=== PATIENT | female | born 1990 | race Caucasian/White ===

== ENCOUNTER 2020-08-04 20:08 | Emergency (ER) | payer MEDICAID ==
[~2020-08-04] VITALS: Ht 157.5 cm; Wt 72.0 kg
[2020-08-04] MEDS ORDERED: SODIUM CHLORIDE 0.9% 1,000 ML IV ONE (21:30)
[2020-08-04] MEDS ORDERED: ACETAMINOPHEN 325MG TABLET PO ONE (21:30)
[2020-08-04 23:20] LABS: CLARITY URINE CLEAR (CLEAR); COLOR URINE DARK YELLOW (YELLOW); KETONES URINE NEGATIVE (NEGATIVE); LEUKOCYTE ESTERASE URINE 2+ (NEGATIVE); NITRITE URINE POSITIVE (NEGATIVE); OCCULT BLOOD URINE NEGATIVE (NEGATIVE); PROTEIN URINE TRACE (NEGATIVE); SPECIFIC GRAVITY URINE 1.017 (1.005-1.030)
[2020-08-04] MEDS ORDERED: NITROFURANTOIN 100MG M/M CAPSULE PO ONE (23:45)
[2020-08-05] VITALS: BP 110/69
== END 2020-08-05 00:29 | disposition home or self-care (01) ==
LOC: ER 20:08
DX: O23.32 Infections of other parts of urinary tract in pregnancy, second trimester (principal); Z3A.16 16 weeks gestation of pregnancy; Z88.0 Allergy status to penicillin
CPT/HCPCS: 81003; 81025; 87077; 87086; 87186; 93005; 99284; C9803; J7030; U0003

== ENCOUNTER 2020-09-12 19:29 | Observation (INO) | payer MEDICAID ==
[~2020-09-12] VITALS: Ht 160 cm; Wt 74.8 kg
[2020-09-12] MEDS: LACTATED RINGERS 1,000 ML IV SCH (20:53)
[2020-09-12 20:59] LABS: BASOPHILS % 0.1 % (0.0-2.0); EOSINOPHILS % 0.1 % (0.0-5.0); HEMATOCRIT. 32.2 % (36.0-48.0); HEMOGLOBIN. 10.9 g/dL (12.0-16.0); LYMPHOCYTES % 8.5 % (20.0-50.0); MEAN CORPUSCULAR HEMOGLOBIN 28.9 pg (28.0-32.0); MEAN CORPUSCULAR VOLUME 85.3 fL (81.0-99.0); MEAN PLATELET VOLUME 7.3 fl (7.4-10.4); MONOCYTES % 6.9 % (2.0-8.0); NEUTROPHILS % 84.4 % (40.0-76.0); PLATELET 293 x1000/uL (130-400); RED BLOOD CELL COUNT 3.78 mill/uL (4.2-5.4); RED CELL DISTRIBUTION WIDTH 13.4 % (11.6-14.6)
[2020-09-12 21:00] LABS: CLARITY URINE CLOUDY (CLEAR); COLOR URINE YELLOW (YELLOW); KETONES URINE 1+ (NEGATIVE); LEUKOCYTE ESTERASE URINE 3+ (NEGATIVE); NITRITE URINE NEGATIVE (NEGATIVE); OCCULT BLOOD URINE 3+ (NEGATIVE); PROTEIN URINE 1+ (NEGATIVE); SPECIFIC GRAVITY URINE 1.016 (1.005-1.030)
[2020-09-12 21:06] LABS: CHLORIDE 101 mEq/L (98-107)
[2020-09-12] MEDS ORDERED: CEFTRIAXONE 2 G in DEXTROSE 5% WATER 50 ML IV SCH (22:30)
[2020-09-12] MEDS ORDERED: ACETAMINOPHEN 325MG TABLET PO PRN (22:30)
[2020-09-12] MEDS: CLINDAMYCIN 900 MG in DEXTROSE 5% WATER 50 ML IV SCH (23:31)
[2020-09-13] MEDS: CLINDAMYCIN 900 MG in DEXTROSE 5% WATER 50 ML IV SCH ×2 (08:32→15:56)
[2020-09-13] MEDS: LACTATED RINGERS 1,000 ML IV SCH ×3 (12:30→19:48)
[2020-09-13 15:21] LABS: BASOPHILS % 0.2 % (0.0-2.0); EOSINOPHILS % 0.1 % (0.0-5.0); HEMATOCRIT. 28.9 % (36.0-48.0); HEMOGLOBIN. 9.9 g/dL (12.0-16.0); LYMPHOCYTES % 9.7 % (20.0-50.0); MEAN CORPUSCULAR HEMOGLOBIN 29.1 pg (28.0-32.0); MEAN CORPUSCULAR VOLUME 84.9 fL (81.0-99.0); MEAN PLATELET VOLUME 7.3 fl (7.4-10.4); MONOCYTES % 7.4 % (2.0-8.0); NEUTROPHILS % 82.6 % (40.0-76.0); PLATELET 284 x1000/uL (130-400); RED CELL DISTRIBUTION WIDTH 13.6 % (11.6-14.6)
[2020-09-13 15:27] LABS: CHLORIDE 104 mEq/L (98-107)
[2020-09-14] MEDS: CLINDAMYCIN 900 MG in DEXTROSE 5% WATER 50 ML IV SCH ×3 (00:13→15:36)
[2020-09-14] MEDS: LACTATED RINGERS 1,000 ML IV SCH (05:58)
[2020-09-14 07:40] LABS: BASOPHILS % 0.2 % (0.0-2.0); EOSINOPHILS % 0.4 % (0.0-5.0); HEMATOCRIT. 26.8 % (36.0-48.0); HEMOGLOBIN. 9.3 g/dL (12.0-16.0); LYMPHOCYTES % 14.1 % (20.0-50.0); MEAN CORPUSCULAR HEMOGLOBIN 29.5 pg (28.0-32.0); MEAN CORPUSCULAR VOLUME 84.8 fL (81.0-99.0); MEAN PLATELET VOLUME 7.3 fl (7.4-10.4); MONOCYTES % 9.9 % (2.0-8.0); NEUTROPHILS % 75.4 % (40.0-76.0); PLATELET 272 x1000/uL (130-400); RED BLOOD CELL COUNT 3.16 mill/uL (4.2-5.4); RED CELL DISTRIBUTION WIDTH 13.7 % (11.6-14.6)
== END 2020-09-14 16:30 | disposition home or self-care (01) ==
LOC: 8 EST LDRP 19:29
PROVIDERS: ADMIT Obstetrics & Gynecology; ATTEND Obstetrics & Gynecology
DX: O26.892 Other specified pregnancy related conditions, second trimester (principal); O99.891 Other specified diseases and conditions complicating pregnancy; O23.02 Infections of kidney in pregnancy, second trimester; N10 Acute pyelonephritis; M54.5 Low back pain; R10.9 Unspecified abdominal pain; Z3A.22 22 weeks gestation of pregnancy; Z88.0 Allergy status to penicillin
CPT/HCPCS: 36415; 59025; 80048; 81003; 85025; 87077; 87086; 87186; 96361; 96365; 96366; G0378; J3490; J7060; J7120; 96360; 99281

== ENCOUNTER 2020-10-21 22:23 | Observation (INO) | payer MEDICAID ==
[~2020-10-21] VITALS: Ht 152.4 cm; Wt 68.0 kg
[2020-10-21] MEDS ORDERED: PNV1TABL50 PO (22:48)
[2020-10-21] MEDS ORDERED: LACTATED RINGERS 1,000 ML IV SCH (23:15)
[2020-10-21 23:32] LABS: CLARITY URINE CLEAR (CLEAR); COLOR URINE YELLOW (YELLOW); KETONES URINE NEGATIVE (NEGATIVE); LEUKOCYTE ESTERASE URINE 3+ (NEGATIVE); NITRITE URINE NEGATIVE (NEGATIVE); OCCULT BLOOD URINE 2+ (NEGATIVE); PROTEIN URINE 1+ (NEGATIVE); SPECIFIC GRAVITY URINE 1.011 (1.005-1.030); UROBILINOGEN URINE 0.2 E.U./dL (0.2-1.0)
[2020-10-22] MEDS ORDERED: CLINDAMYCIN 600MG PREMIX 50 ML IV SCH (01:00)
== END 2020-10-22 01:18 | disposition home or self-care (01) ==
LOC: 8 EST LDRP 22:23
PROVIDERS: ADMIT Obstetrics & Gynecology; ATTEND Obstetrics & Gynecology
DX: O26.893 Other specified pregnancy related conditions, third trimester (principal); R35.0 Frequency of micturition; Z3A.26 26 weeks gestation of pregnancy
CPT/HCPCS: 59025; 76805; 76817; 76818; 81003; 87086; 96361; 96365; G0378; J3490; 96360; 99281

== ENCOUNTER 2020-11-19 17:33 | Observation (INO) | payer MEDICAID ==
[~2020-11-19 17:33] MED LIST: PNV1TABL50 PO
== END 2020-11-19 18:40 | disposition home or self-care (01) ==
LOC: 8 EST LDRP 17:33
PROVIDERS: ADMIT Obstetrics & Gynecology; ATTEND Obstetrics & Gynecology
DX: O34.63 Maternal care for abnormality of vagina, third trimester (principal); Z3A.39 39 weeks gestation of pregnancy
CPT/HCPCS: 59025; G0378; 99281